=== PATIENT | male | born 1965 | race Caucasian/White ===

== ENCOUNTER 2019-05-06 21:48 | Emergency (ER) | payer SELFPAY ==
[~2019-05-06] VITALS: Ht 175.3 cm; Wt 72.3 kg
[2019-05-06 22:08] VITALS: BP 139/95
--- NOTE | 2019-05-06 22:12 | NUR ---
PT AMBULATED BACK TO LOBBY WITH STEADY GAIT. AWAITING AVAILABLE BED.
--- NOTE | 2019-05-06 23:11 | NUR ---
PT AMBULATED TO ER BED 07
--- NOTE | 2019-05-06 23:11 | NUR ---
53 Y/O MALE PRESENTS TO ED WITH C/O REDNESS, EDEMA, AND DISCOMFORT TO RIGHT HAND X1 DAY. NO DRAINAGE OR OPEN AREAS. 4/10 TOLLERABLE PAIN. AFEBRILE WITH VSS. ER MD AWARE. CONTINUE TO MONITOR.
[2019-05-07 00:13] VITALS: BP 140/86
--- NOTE | 2019-05-07 00:13 | NUR ---
DISCHARGE PAPERS GIVEN TO PT. NO C/O PAIN. PROVIDED WITH RX DISCOUNT CARD. RX OF BACTRIM AND KEFLEX GIVEN. SIDE EFFECTS EXPLAINED. INSTRUCTED TO F/U WITH PCP AND WHEN TO RETURN TO ER. ALL QUESTIONS ANSWERED.
== END 2019-05-07 00:13 | disposition home or self-care (01) ==
LOC: MED 21:48
DX: T63.301A Toxic effect of unspecified spider venom, accidental (unintentional), initial encounter (principal); L03.113 Cellulitis of right upper limb; Y92.89 Other specified places as the place of occurrence of the external cause
CPT/HCPCS: 99283

== ENCOUNTER 2022-04-19 06:37 | Emergency (ER) | payer MEDICAID ==
[~2022-04-19] VITALS: Ht 175.3 cm; Wt 77.1 kg
[2022-04-19 06:39] VITALS: BP 189/106
--- NOTE | 2022-04-19 06:48 | NUR ---
PT TAKEN TO BED 4
--- NOTE | 2022-04-19 06:49 | NUR ---
DR RAMIREZ AT BEDSIDE
[2022-04-19] MEDS ORDERED: NACL 0.9% 1,000 ML IV SCH (06:50)
[2022-04-19] MEDS ORDERED: KETOROLAC 30 MG/ML VIAL IVP ONE (06:50)
[2022-04-19] MEDS ORDERED: ACETAMINOPHEN EXTRA STRENGTH 500 MG TAB PO ONE (06:50)
--- NOTE | 2022-04-19 06:50 | NUR ---
56 Y.O. BIB W/C FROM [facility] WITH C/O LLQ A/P X 3 DAYS. DENIES N/V/D, CHEST PAIN AND SOB. STATED THAT THERE WAS A LITTLE BLOOD IN STOOL. PAIN IS 10/10 THAT IS SHARP AND CONSTANT. PT DOES HAVE A FEVER AND CHILLS. A&OX4, SKIN INTACT, STEADY GAIT AND VITALS WNL FOR PT. PMH : DENIES NKA
[2022-04-19 07:09] LABS: BASOPHILS # (AUTO) 0.1 K/uL (0.00-0.22); BASOPHILS % (AUTO) 0.5 % (0.0-2.0); EOSINOPHILS % (AUTO) 0.4 % (0.0-4.0); HEMATOCRIT 43.6 % (36-52); HEMOGLOBIN 14.6 g/dL (12.0-18.0); LYMPHOCYTES # (AUTO) 1.1 K/uL (2.0-11.5); LYMPHOCYTES % (AUTO) 11.3 % (20.5-51.1); MEAN CORPUSCULAR HEMOGLOBIN 30 pg (27-31); MEAN CORPUSCULAR HGB CONC 34 g/dL (33-37); MEAN CORPUSCULAR VOLUME 90.2 fL (80-94); MONOCYTES # (AUTO) 1.1 K/uL (0.8-1.0); MONOCYTES % (AUTO) 11.3 % (1.7-9.3); NEUTROPHILS # (AUTO) 7.7 K/uL (1.8-7.7); NEUTROPHILS % (AUTO) 76.5 % (42.2-75.2); PLATELET COUNT (AUTO) 225 K/uL (140-450); RED BLOOD CELL COUNT(AUTO) 4.83 MIL/uL (4.20-6.10); RED CELL DISTRIBUTION WIDTH 13.8 % (11.6-13.7)
--- NOTE | 2022-04-19 07:13 | NUR ---
PT TO CT AT THIS TIME
--- NOTE | 2022-04-19 07:15 | NUR ---
PT TAKEN TO CT
--- NOTE | 2022-04-19 07:16 | NUR ---
Pt report given to TOÑO. Transfer of care at this time.
--- NOTE | 2022-04-19 07:20 | NUR ---
Pt in bed resting with no s/s of distress. VSS. Bed in lowest position. Has 20g IV intact with no infiltration noted.
--- NOTE | 2022-04-19 07:25 | NUR ---
PT RETURN FROM RADIOLOGY. BED IN LOWEST POSITION.
[2022-04-19 07:29] LABS: ALBUMIN 3.4 g/dL (3.4-5.0); ANION GAP 13.2 (8-16); CARBON DIOXIDE 25.1 mmol/L (21-32); POTASSIUM 4.3 mmol/L (3.5-5.1); TOTAL BILIRUBIN 0.5 mg/dL (0.0-1.0)
--- NOTE | 2022-04-19 08:05 | NUR ---
Rechecked vitals and pt has temp of 99.3F, BP at 193/116, and HR at 103. Rates 10/10 LLQ pain. aware.
--- NOTE | 2022-04-19 08:09 | NUR ---
ER physician notified of pt's elevated BP at 193/116 and Temp of 99.3 and as well ast HR 103. No new orders at this time.
[2022-04-19 08:14] LABS: APPEARANCE,URINE CLEAR (CLEAR); BILIRUBIN,URINE NEGATIVE (NEGATIVE); BLOOD, URINE 3+ (NEGATIVE); COLOR,URINE YELLOW (YELLOW); LEUKOCYTE ESTERASE ,URINE NEGATIVE (NEGATIVE); NITRITE, URINE NEGATIVE (NEGATIVE); UGLUCOSE 1+ (NEGATIVE)
[2022-04-19 08:28] LABS: OTHER CASTS, URINE None Seen /LPF (None Seen); WBC,URINE 0-5 /HPF (0-5)
--- NOTE | 2022-04-19 08:59 | NUR ---
Notified ER Physician (Dr. Purvis) of pt's elevated BP now at 205/121. Still no new orders at this time. Other vitals stable.
[2022-04-19] MEDS ORDERED: IBUP-2213 PO (09:07)
[2022-04-19 09:27] VITALS: BP 205/121
--- NOTE | 2022-04-19 09:28 | NUR ---
Patient discharged with v/s stable except for BP at 205/121, Dr. Dumas is aware and stated he can still go home. Written and verbal after care instructions given and explained. Patient verbalized understanding. Ambulatory with steady gait. All questions addressed prior to discharge. Advised to follow up with PMD.
== END 2022-04-19 09:27 | disposition home or self-care (01) ==
LOC: MED 06:37
DX: R10.31 Right lower quadrant pain (principal); R50.9 Fever, unspecified; F17.200 Nicotine dependence, unspecified, uncomplicated
CPT/HCPCS: 36415; 74176; 80053; 81001; 83690; 85025; 96361; 96374; 99285; J1885; J7030

== ENCOUNTER 2023-10-08 19:10 | Emergency (ER) | payer MEDICAID ==
[~2023-10-08] VITALS: Ht 170.2 cm; Wt 72.6 kg
[~2023-10-08 19:10] MED LIST: IBUP-2213 PO
[2023-10-08 19:20] VITALS: RESP 16; O2SAT 93
== END 2023-10-08 19:22 | disposition left against medical advice (07) ==
LOC: MED 19:10
DX: R40.4 Transient alteration of awareness (principal); T65.91XA Toxic effect of unspecified substance, accidental (unintentional), initial encounter; Y92.89 Other specified places as the place of occurrence of the external cause
CPT/HCPCS: 99283